=== PATIENT | female | born 1985 | race Caucasian/White ===

== ENCOUNTER 2025-02-19 12:24 | Outpatient (RCR) | payer MEDICAID, SELFPAY | END 2025-03-03 23:59 | disposition home or self-care (01) | LOC: SCTC 12:24 | PROVIDERS: PCP Nurse Practitioner Family; Referring Provider Internal Medicine Hematology & Oncology; Visit Provider Nurse Practitioner Family | DX: D69.6 Thrombocytopenia, unspecified (principal); K70.30 Alcoholic cirrhosis of liver without ascites | CPT/HCPCS: 99213; G0463 ==

== ENCOUNTER 2025-03-20 13:08 | Outpatient (RCR) | payer MEDICAID, SELFPAY | END 2025-04-02 23:59 | disposition home or self-care (01) | LOC: SCTC 13:08 | PROVIDERS: PCP Nurse Practitioner Family; Referring Provider Nurse Practitioner Family; Visit Provider Nurse Practitioner Family | DX: D69.6 Thrombocytopenia, unspecified (principal); K70.31 Alcoholic cirrhosis of liver with ascites | CPT/HCPCS: 99212; G0463 ==

== ENCOUNTER 2025-05-22 12:59 | Outpatient (RCR) | payer MEDICAID, SELFPAY | END 2025-06-03 23:59 | disposition home or self-care (01) | LOC: SCTC 12:59 | PROVIDERS: PCP Nurse Practitioner Family; Referring Provider Nurse Practitioner Family; Visit Provider Nurse Practitioner Family | DX: K70.31 Alcoholic cirrhosis of liver with ascites (principal); D69.6 Thrombocytopenia, unspecified | CPT/HCPCS: 99212; 99424; 99425; G0463 ==

== ENCOUNTER 2025-08-21 13:34 | Outpatient (RCR) | payer MEDICAID, SELFPAY | END 2025-09-02 23:59 | disposition home or self-care (01) | LOC: SCTC 13:34 | PROVIDERS: PCP Nurse Practitioner Family; Referring Provider Nurse Practitioner Family; Visit Provider Nurse Practitioner Family | DX: D69.6 Thrombocytopenia, unspecified (principal); K70.31 Alcoholic cirrhosis of liver with ascites | CPT/HCPCS: 99211; 99212; G0463 ==